=== PATIENT | female | born 1985 | race Native Hawaiian/Other Pacific Islander ===

== ENCOUNTER 2021-05-14 01:21 | Emergency (ER) | payer OTHER ==
[~2021-05-14] VITALS: Ht 162.6 cm; Wt 45.4 kg
[2021-05-14 02:15] VITALS: BP 108/67; TEMP 98.1
== END 2021-05-14 02:17 | disposition home or self-care (01) ==
LOC: ED 01:21
DX: S63.592A Other specified sprain of left wrist, initial encounter (principal); X50.1XXA Overexertion from prolonged static or awkward postures, initial encounter; Y93.72 Activity, wrestling; Y92.89 Other specified places as the place of occurrence of the external cause
CPT/HCPCS: 96374; 99283; 99284; J1885

== ENCOUNTER 2021-07-29 12:46 | Outpatient (CLI) | payer OTHER | END 2021-07-29 19:24 | disposition home or self-care (01) | LOC: RAD 12:46 | PROVIDERS: ATTEND Physician Assistant | DX: R06.02 Shortness of breath (principal) ==

== ENCOUNTER 2021-07-31 08:02 | Emergency (ER) | payer OTHER ==
[~2021-07-31] VITALS: Ht 162.6 cm; Wt 45.4 kg
[2021-07-31 09:36] VITALS: BP 120/68; TEMP 98.7
== END 2021-07-31 09:41 | disposition home or self-care (01) ==
LOC: ED 08:02
DX: R07.81 Pleurodynia (principal); R07.89 Other chest pain
CPT/HCPCS: 80307; 81000; 96372; 99283; J1885